=== PATIENT | female | born 1995 | race Caucasian/White ===

== ENCOUNTER 2020-05-16 16:56 | Emergency (ER) | payer OTHER ==
[~2020-05-16] VITALS: Ht 165.1 cm; Wt 66.2 kg
[2020-05-16 17:03] VITALS: BP 118/89
--- NOTE | 2020-05-16 17:08 | NUR ---
PT AMBULATED TO BATHROOM, STEADY GAIT.
--- NOTE | 2020-05-16 17:53 | NUR ---
PT TAKEN TO XR VIA WC
--- NOTE | 2020-05-16 18:16 | NUR ---
24 Y/F PRESENTS TO ED C X 1 MONTH S/P FOOT INJURY. PT REPORTS SHE JUMPED GROUND LEVEL AND TWISTED FOOT WHILE LANDING. PT DENIES ANY ANKLE PAIN. NO VISIBLE DEFORMITY OR EDEMA NOTED, PEDAL PULSE 2+. PT REPORTS 4/10 CONTANT PAIN PMH- DENEIS RX- DENIES NKDA
--- NOTE | 2020-05-16 18:21 | NUR ---
SUZAN BAZZI REEVALUATING PT.
[2020-05-16 18:23] VITALS: BP 118/89
== END 2020-05-16 18:23 | disposition home or self-care (01) ==
LOC: MED 16:56
DX: M79.671 Pain in right foot (principal); X50.9XXA Other and unspecified overexertion or strenuous movements or postures, initial encounter; Y93.89 Activity, other specified; Y92.89 Other specified places as the place of occurrence of the external cause; Y99.8 Other external cause status
CPT/HCPCS: 73630; 81025; 99283

== ENCOUNTER 2022-06-26 13:56 | Emergency (ER) | payer OTHER ==
[~2022-06-26] VITALS: Ht 165.1 cm; Wt 65.8 kg
[2022-06-26 14:22] VITALS: BP 122/78
[2022-06-26] MEDS ORDERED: ACETAMINOPHEN EXTRA STRENGTH 500 MG TAB ONE (14:31)
[2022-06-26] MEDS: ACETAMINOPHEN EXTRA STRENGTH 500 MG TAB PO ONE (14:33)
--- NOTE | 2022-06-26 14:45 | NUR ---
PT AMBULATED TO ER BED 8
--- NOTE | 2022-06-26 15:47 | NUR ---
26YO FEMALE PT C/O L FLANK AND LOWER ABDOMINAL PAIN X5 DAYS. REPORTS DYSURIA, FEVER, NAUSEA, HEADACHE AND VOMIT X1 YESTERDAY .PT STATES DX OF UTI 4 DAYS AGO W/ NO RELIEF AFTER TAKING ANTIBIOTICS AND TYLENOL. DENIES CHEST PAIN OR SOB. PRESENTED W/ FEVER AND MEDICATED PER PROTOCOL. PT AAOX4, NO VISIBLE DISTRESS, RESPIRATIONS EVEN AND UNLABORED. HX: DENIES NKA
[2022-06-26] MEDS ORDERED: CEPH-588 PO (16:25)
[2022-06-26 16:35] VITALS: BP 122/78
--- NOTE | 2022-06-26 16:35 | NUR ---
Patient discharged with v/s stable. Written and verbal after care instructions FOR UTI given and explained. Patient alert, oriented and verbalized understanding of instructions. Ambulatory with steady gait. All questions addressed prior to discharge. ID band removed. Patient advised to follow up with PMD. Rx of KELFEX given. Opportunity to ask questions provided and answered.
== END 2022-06-26 16:35 | disposition home or self-care (01) ==
LOC: MED 13:56
DX: N39.0 Urinary tract infection, site not specified (principal)
CPT/HCPCS: 81002; 99283